=== PATIENT | male | born 2000 | race African-American/Black ===

== ENCOUNTER 2022-09-29 11:48 | Emergency (ER) | payer OTHER, BC | END 2022-09-29 12:46 | disposition home or self-care (01) | LOC: ERS 11:48 | DX: S16.1XXA Strain of muscle, fascia and tendon at neck level, initial encounter (principal); V89.0XXA Person injured in unspecified motor-vehicle accident, nontraffic, initial encounter | CPT/HCPCS: 70450; 72125; G0390 ==

== ENCOUNTER 2022-09-29 13:54 | Emergency (ER) | payer OTHER, BC ==
[2022-09-29] MEDS ORDERED: Acetaminophen 500 MG TAB ONE (15:17)
[2022-09-29] MEDS ORDERED: Ketorolac Tromethamine 30 MG/ML VIAL ONE (15:17)
== END 2022-09-29 15:45 | disposition home or self-care (01) ==
LOC: ERS 13:54
DX: R51.9 Headache, unspecified (principal); M79.632 Pain in left forearm; V89.0XXA Person injured in unspecified motor-vehicle accident, nontraffic, initial encounter
CPT/HCPCS: 96372; J1885